=== PATIENT | male | born 1970 | race African-American/Black ===

== ENCOUNTER 2016-12-19 08:38 | Day surgery (SDC) | payer OTHER ==
[2016-12-19] VITALS (12 sets, daily range): BP systolic 101–137; BP diastolic 56–84; PULSE 72–105; RESP 10–24; Ht 182.9 cm; Wt 118.1 kg
[~2016-12-19] VITALS: Ht 182.9 cm; Wt 118.1 kg
[~2016-12-19 08:38] MED LIST: HYDR-3498 PO; IBUP-1542 PO
[2016-12-19] MEDS ORDERED: HYD25 PO (09:48)
[2016-12-19] MEDS ORDERED: LOSA25TA2 PO (09:48)
[2016-12-19] MEDS ORDERED: ASPI81TA3 PO (09:48)
--- NOTE | 2016-12-19 10:09 | HPN ---
Date/Time of Note Date/Time of Note DATE: 12/19/16 TIME: 10:08 Interval H&P Admission Note Pt. seen H&P reviewed: No system changes JAY FLANNERY MD Dec 19, 2016 10:08
[2016-12-19] MEDS ORDERED: MIDAZOLAM 1 MG/ML 2 ML INJ ONE (10:10)
[2016-12-19] MEDS ORDERED: SUCCINYLCHOLINE CHLORIDE 100 MG/5 ML SYG IV ONE (10:10)
[2016-12-19] MEDS ORDERED: METOCLOPRAMIDE 10 MG INJ ONE (10:10)
[2016-12-19] MEDS ORDERED: FENTAnyl 50 MCG/ML VIAL ONE (10:10)
[2016-12-19] MEDS ORDERED: PROPOFOL 20 ML ONE ×2 (10:10→10:56)
[2016-12-19] MEDS ORDERED: POLYMYXIN/BACITRACIN 1L IRRIG ONE (10:27)
[2016-12-19] MEDS ORDERED: BUPIVACAINE 0.25%/EPI (SDV) 30 ML INJ ONE (10:28)
[2016-12-19] MEDS ORDERED: KETOROLAC 30 MG INJ ONE (10:30)
[2016-12-19] MEDS ORDERED: CEFAZOLIN 1 GM INJ ONE (10:30)
[2016-12-19] MEDS ORDERED: NEOSTIGMINE 3 MG/3 ML SYRINGE ONE (10:30)
[2016-12-19] MEDS ORDERED: GLYCOPYRROLATE 0.4 MG INJ ONE (10:30)
[2016-12-19] MEDS ORDERED: ROCURONIUM 50 MG INJ ONE (10:30)
[2016-12-19] MEDS ORDERED: HYDROmorphONE 2 MG/ML SYG ONE (10:31)
[2016-12-19] MEDS ORDERED: EPHEDrine SULFATE 50 MG/5 ML SYG ONE (10:40)
[2016-12-19] MEDS ORDERED: BUPIVACAINE 0.25%/EPI (SDV) 30 ML INJ INJ ONE (10:43)
[2016-12-19] MEDS ORDERED: POLYMYXIN/BACITRACIN 1L IRRIG IRR ONE (10:43)
[2016-12-19] MEDS ORDERED: ONDANSETRON 4 MG INJ IV PRN ×2 (11:00→11:30)
[2016-12-19] MEDS ORDERED: DIPHENHYDRAMINE 50 MG INJ IV PRN (11:00)
[2016-12-19] MEDS ORDERED: MEPERIDINE 25 MG INJ IV PRN (11:00)
[2016-12-19] MEDS ORDERED: HYDROmorphONE (0.2 MG/ML) 10ML SYG IV PRN ×3 (11:00)
[2016-12-19] MEDS ORDERED: METOCLOPRAMIDE 10 MG INJ IV PRN (11:00)
[2016-12-19] MEDS ORDERED: OXYCODONE/ACETAMINOPHEN (5/325) TAB PO PRN ×2 (11:00)
--- NOTE | 2016-12-19 11:23 | OPR ---
Date/Time of Note Date/Time of Note DATE: 12/19/16 TIME: 11:17 Operative Report Procedure Date: Dec 19, 2016 Preoperative Diagnosis Ventral/umbilical hernia without obstruction or gangrene Postoperative Diagnosis Ventral/umbilical hernia without obstruction or gangrene Operation Performed Repair of ventral/umbilical hernia with mesh Surgeon: JAY FLANNERY MD Anesthesia: general Anesthesiologist: TRI FAIRBANKS MD Estimated Blood Loss: minimal Complications: None Pt Condition Post Procedure: stable Disposition: PACU Indications Patient is an obese 46-year-old -[place] gentleman who presented to the office with a ventral/umbilical hernia chronically incarcerated with fat. This has been present for the past 8 years, but has recently been enlarging and causing increasing discomfort. He was scheduled for elective repair with mesh to prevent further sequelae of hernia disease, which include but are not limited to: Incarceration and strangulation. All risks and benefits of the procedure including, but not limited to: Wound infection, excessive bleeding, postoperative seroma/hematoma formation, hernia recurrence, chronic pain, etc. were all explained to the patient in full detail. He fully understood and wished to proceed with the procedure. Informed consent was obtained. Operative Findings Ventral/umbilical hernia chronically incarcerated with fat Procedure Description The patient was brought to the operating room and placed supine on the operating table. Bilateral sequential compression devices were placed on both lower extremities. A dose of broad-spectrum perioperative intravenous antibiotics was given. After the induction of smooth general endotracheal anesthesia the patient's abdomen was prepped and draped in the standard surgical fashion. After performance of the surgical timeout a semicircular incision was made in the inferior umbilicus after anesthetizing the skin with 0.25% Marcaine with epinephrine and using a 15 blade scalpel. Incision was taken down through the skin into the subcutaneous tissues using sharp dissection and Bovie electrocautery. Dissection was done to the level of anterior rectus fascia. The umbilicus was encircled using a Shirin clamp and transected at its base. A fat-containing ventral/umbilical hernia was identified. The fat was reduced back into the peritoneal cavity. The hernia sac was dissected off of the umbilicus. The fascia was cleaned off circumferentially. The defect measured approximately 1 cm. The hernia defects then repaired using a small piece of Ethicon proceed ventral hernia patch. The patch was soaked in antibiotic irrigation prior to inserting it into the field. The tails of the mesh were secured in place to the fascia using interrupted 2-0 Novafil sutures. Hemostasis was inspected for and noted to be total. The wound was irrigated with warm normal saline. The fascia was then reapproximated over the mesh using a #1 PDS suture in [id number] fashion. The umbilicus was then tacked down to the fascia using interrupted 3-0 Vicryl suture. Further irrigation was done. The wound was then reapproximated in layers using interrupted 3-0 Vicryl sutures for the dermal layer. The skin was reapproximated using 4-0 Monocryl sutures in a running fashion. Further local anesthesia was applied around the skin of the incision sites. Incision was cleaned and Dermabond was applied. Abdominal binder was also applied. The patient was then awoken from anesthesia and transported to the recovery room in stable condition. All counts were correct at the end of the case 2 JAY FLANNERY MD Dec 19, 2016 11:23
[2016-12-19] MEDS ORDERED: CEFAZOLIN 2 GM/50 ML (PMX) 50 ML IVPB ONE (11:30)
[2016-12-19] MEDS ORDERED: KETOROLAC 30 MG INJ IV PRN (11:30)
[2016-12-19] MEDS ORDERED: SOD CHLORIDE 0.9% 1,000 ML IV SCH (11:30)
[2016-12-19] MEDS ORDERED: IBUPROFEN 600 MG TAB PO PRN (11:30)
[2016-12-19] MEDS ORDERED: HYDROCODONE/APAP (5/325) TAB PO PRN ×2 (11:30)
[2016-12-19] MEDS ORDERED: morphine 2 MG INJ IV PRN (11:30)
== END 2016-12-19 13:50 | disposition home or self-care (01) ==
LOC: SDS 08:38
PROVIDERS: ATTEND Surgery
DX: K42.9 Umbilical hernia without obstruction or gangrene (principal); I10 Essential (primary) hypertension; E66.9 Obesity, unspecified; Z68.35 Body mass index [BMI] 35.0-35.9, adult
CPT/HCPCS: 49585; C1781; J0690; J1170; J1885; J2250; J2710; J2765; J0330; J3010

== ENCOUNTER 2019-07-11 17:48 | Emergency (ER) | payer OTHER ==
[~2019-07-11] VITALS: Ht 182.9 cm; Wt 160.0 kg
[~2019-07-11 17:48] MED LIST changes: +ASPI-903 PO; +HYDR25TA6 PO; +LOSA25TA2 PO; +METH500T PO; +PRED20TA PO
[2019-07-11 18:05] VITALS: Ht 182.9 cm; Wt 160.0 kg
[2019-07-11] MEDS ORDERED: KETOROLAC 30 MG INJ IM STA (19:21)
[2019-07-11 19:56] VITALS: BP 128/89; PULSE 71; RESP 16
== END 2019-07-11 19:57 | disposition home or self-care (01) ==
LOC: FTE 17:48
DX: M54.42 Lumbago with sciatica, left side (principal); F17.210 Nicotine dependence, cigarettes, uncomplicated; Z79.82 Long term (current) use of aspirin
CPT/HCPCS: 96372; J1885; Z7502